=== PATIENT | male | born 1945 | race Caucasian/White ===

== ENCOUNTER 2018-02-17 07:53 | Day surgery (SDC) | payer MEDICARE, BC ==
[~2018-02-17] VITALS: Ht 177.8 cm; Wt 141.3 kg
[2018-02-17 08:32] LABS: HEMATOCRIT 42.6 % (42.0-52.0); MEAN CELL VOLUME 90 fl (80.0-100.0); MEAN CORPUSCULAR HEMOGLOBIN 30 pg (27.0-31.0); MEAN CORPUSCULAR HGB CONC 33 g/dl (33.0-37.0); MEAN PLATELET VOLUME 9.5 fl (7.4-10.4); PLATELET COUNT 216 K/mm3 (130-400); RED BLOOD COUNT 4.71 M/mm3 (4.20-5.60); REDCELL DISTRIBUTION WIDTH-CV 12.7 % (11.5-14.5)
[2018-02-17 08:38] LABS: INR 1.3 (0.8-3.0); PROTHROMBIN TIME 14.3 SECONDS (9.7-12.8)
[2018-02-17 08:42] VITALS: BP 132/90; PULSE 61; TEMP 98.1
[2018-02-17 08:43] LABS: CALCIUM 9.3 mg/dL (8.4-10.2); CREATININE, serum 0.73 mg/dL (0.66-1.25); POTASSIUM 4.4 mmol/L (3.4-5.0)
[2018-02-17] MEDS ORDERED: ANTACID200 MG PO (08:46)
[2018-02-17] MEDS ORDERED: VITAMIN D3400 I1 PO (08:46)
[2018-02-17] MEDS ORDERED: MULTIPLE VITAMI1 CAP PO (08:47)
[2018-02-17] MEDS ORDERED: ELIQUIS 5MG PO (08:47)
[2018-02-17] MEDS ORDERED: PRILOSEC 20MG20 MG PO (08:47)
[2018-02-17] MEDS ORDERED: NATURE'S BLEND100 M2 PO (08:48)
[2018-02-17] MEDS ORDERED: MYRBETR25MG PO (08:48)
[2018-02-17] MEDS ORDERED: FLONASEALLERGY NS (08:49)
[2018-02-17] MEDS ORDERED: BENADRYL25 M2 PO (08:50)
[2018-02-17] MEDS ORDERED: MELAT3MGTAB PO (08:51)
[2018-02-17] MEDS ORDERED: [UNRECOGNIZED DRUG - REMARK] PO (08:51)
[2018-02-17] MEDS ORDERED: COLESTID 1GM1 G PO (08:52)
[2018-02-17] MEDS ORDERED: TOPROL XL 25MG25 MG PO (08:56)
[2018-02-17] MEDS ORDERED: VITAMINC1000TA PO (08:59)
== END 2018-02-17 10:46 | disposition home or self-care (01) ==
LOC: COL.CAR 07:53
PROVIDERS: Internal Medicine Cardiovascular Disease
DX: I48.91 Unspecified atrial fibrillation (principal); K21.9 Gastro-esophageal reflux disease without esophagitis; I10 Essential (primary) hypertension; E66.9 Obesity, unspecified; N31.9 Neuromuscular dysfunction of bladder, unspecified; M19.90 Unspecified osteoarthritis, unspecified site; K76.0 Fatty (change of) liver, not elsewhere classified; G89.29 Other chronic pain; Z79.01 Long term (current) use of anticoagulants; Z79.51 Long term (current) use of inhaled steroids; Z87.891 Personal history of nicotine dependence; Z53.8 Procedure and treatment not carried out for other reasons
CPT/HCPCS: J2704

== ENCOUNTER 2018-04-19 08:04 | Day surgery (SDC) | payer MEDICARE, BC ==
[2018-04-19] VITALS (7 sets, daily range): BP systolic 145–189; BP diastolic 62–95; PULSE 45–74; TEMP 97.7–98.8
[~2018-04-19] VITALS: Ht 177.8 cm; Wt 141.9 kg
[~2018-04-19 08:04] MED LIST: ANTACID200 MG PO; BENADRYL25 M2 PO; COLESTID 1GM1 G PO; ELIQUIS 5MG PO; FLONASEALLERGY NS; MELAT3MGTAB PO; MULTIPLE VITAMI1 CAP PO; MYRBETR25MG PO; NATURE'S BLEND100 M2 PO; PRILOSEC 20MG20 MG PO; TOPROL XL 25MG25 MG PO; VITAMIN D3400 I1 PO; VITAMINC1000TA PO; [UNRECOGNIZED DRUG - REMARK] PO
[2018-04-19 08:48] LABS: HEMOGLOBIN 14.3 g/dl (13.5-18.0); MEAN CELL VOLUME 89 fl (80.0-100.0); MEAN CORPUSCULAR HEMOGLOBIN 29 pg (27.0-31.0); MEAN CORPUSCULAR HGB CONC 33 g/dl (33.0-37.0); MEAN PLATELET VOLUME 9.9 fl (7.4-10.4); PLATELET COUNT 171 K/mm3 (130-400); RED BLOOD COUNT 4.96 M/mm3 (4.20-5.60); REDCELL DISTRIBUTION WIDTH-CV 13.1 % (11.5-14.5)
[2018-04-19 08:54] LABS: PROTHROMBIN TIME 10.8 SECONDS (9.7-12.8)
[2018-04-19] MEDS ORDERED: CALCIUM CARBON650 M2 PO (08:56)
[2018-04-19 08:59] LABS: CREATININE, serum 0.84 mg/dL (0.66-1.25); POTASSIUM 4.3 mmol/L (3.4-5.0)
[2018-04-20 03:47] VITALS: BP 135/71; PULSE 86; TEMP 98.5
[2018-04-20 07:49] VITALS: BP 124/51; PULSE 76; TEMP 98.2
[2018-04-20] MEDS ORDERED: TOPROL XL 50MG50 MG PO (10:22)
== END 2018-04-20 11:30 | disposition home or self-care, planned readmission (81) ==
LOC: COL.CAR 08:04 → MEDICAL 13:24 → COL.CAR 04-20 11:30
PROVIDERS: Internal Medicine Cardiovascular Disease
DX: I44.1 Atrioventricular block, second degree (principal); I45.10 Unspecified right bundle-branch block; K21.9 Gastro-esophageal reflux disease without esophagitis; I10 Essential (primary) hypertension; I48.92 Unspecified atrial flutter; I48.91 Unspecified atrial fibrillation; Z95.0 Presence of cardiac pacemaker; Z87.891 Personal history of nicotine dependence
CPT/HCPCS: OP; J0690; J2250; J3010; J7030

== ENCOUNTER 2018-12-26 15:30 | Outpatient (RCR) | payer MEDICARE, BC ==
[~2018-12-26 15:30] MED LIST changes: +CALCIUM CARBON650 M2 PO; +TOPROL XL 50MG50 MG PO
== END 2019-01-19 ==
LOC: MKS.ESL.PT
DX: M75.21 Bicipital tendinitis, right shoulder (principal)

== ENCOUNTER 2019-04-10 16:15 | Outpatient (RCR) | payer MEDICARE, BC | END 2019-05-14 | disposition home or self-care (01) | LOC: MKS.ESL.PT | DX: M75.91 Shoulder lesion, unspecified, right shoulder (principal) ==

== ENCOUNTER → 2020-03-07 | Outpatient (CLI) | payer OTHER | LOC: COL.RAD 11:40 | DX: N31.0 Uninhibited neuropathic bladder, not elsewhere classified (principal); Z20.828 Contact with and (suspected) exposure to other viral communicable diseases ==

== ENCOUNTER 2021-01-03 19:55 | Emergency (ER) | payer MEDICARE, BC ==
[~2021-01-03] VITALS: Ht 175.3 cm; Wt 143.2 kg
[2021-01-03 20:26] LABS: BASO % 0.5 % (0.0-2.0); EOS # 0.2 (0.0-0.7); EOS % 3.2 % (0-4.0); GRAN # 3.4 (1.4-6.5); GRAN % 52.7 % (42.2-75.2); HEMATOCRIT 47.9 % (42.0-52.0); HEMOGLOBIN 15.4 g/dl (13.5-18.0); LYMPH # 2.2 (1.2-3.4); LYMPH % 33.2 % (20.0-51.0); MEAN CELL VOLUME 94 fl (80.0-100.0); MEAN CORPUSCULAR HEMOGLOBIN 30 pg (27.0-31.0); MEAN CORPUSCULAR HGB CONC 32 g/dl (33.0-37.0); MEAN PLATELET VOLUME 10.5 fl (7.4-10.4); MONO # 0.7 (0.1-0.6); MONO % 10.2 % (1.7-9.3); PLATELET COUNT 149 K/mm3 (130-400); RED BLOOD COUNT 5.12 M/mm3 (4.20-5.60)
[2021-01-03 20:36] LABS: ALANINE AMINOTRANSFERASE 23 U/L (4-49); ALBUMIN 3.9 gm/dL (3.5-5.0); ALKALINE PHOSPHATASE 47 U/L (50-136); ANION GAP 4 mmol/L (7-16); AST,SGOT 32 U/L (15-37); BILIRUBIN,TOTAL 0.9 mg/dL (0.0-1.0); BLOOD UREA NITROGEN 19 mg/dL (9-20); CALCIUM 9.4 mg/dL (8.4-10.2); CARBON DIOXIDE 28 mmol/L (22-30); CHLORIDE 107 mmol/L (98-107); CREATININE, serum 0.77 (0.66-1.25); GLUCOSE 106 mg/dL (74-106); POTASSIUM 4.9 mmol/L (3.4-5.0); SODIUM 139 mmol/L (137-145); TOTAL PROTEIN 7.5 gm/dL (6.4-8.2)
[2021-01-03 20:52] LABS: TROPONIN-I < 0.012 ng/mL (0.000-0.035)
[2021-01-03 21:24] VITALS: TEMP 97.9
[2021-01-03 21:38] LABS: PROTHROMBIN TIME 10.8 SECONDS (9.7-12.8)
[2021-01-03 22:15] VITALS: BP 108/53; PULSE 70
== END 2021-01-03 22:22 | disposition home or self-care (01) ==
LOC: COL.ER 19:55
PROVIDERS: Emergency Medicine
DX: G45.9 Transient cerebral ischemic attack, unspecified (principal)
CPT/HCPCS: J7030

== ENCOUNTER → 2021-01-29 | Outpatient (CLI) | payer MEDICARE, BC | LOC: COL.VAS 14:09 | DX: G45.9 Transient cerebral ischemic attack, unspecified (principal) ==